=== PATIENT | female | born 1995 | race Caucasian/White ===

== ENCOUNTER → 2020-07-02 | Outpatient (CLI) | payer MEDICAID, SELFPAY ==
[2015-06-02 11:00] VITALS: BMI 22.1
[2020-07-08 20:34] LABS: HPV Reflexed? NOT INDICATED
== END | disposition home or self-care (01) ==
LOC: LABSPEC 16:26
PROVIDERS: Visit Provider Obstetrics & Gynecology
DX: Z12.4 Encounter for screening for malignant neoplasm of cervix (principal)
CPT/HCPCS: 88175; G0145